=== PATIENT | male | born 1935 | race Caucasian/White ===

== ENCOUNTER → 2024-02-25 10:26 | Outpatient (REF) | payer OTHER, SELFPAY | LOC: HWRAD 10:26 | PROVIDERS: ATTENDING PHYSICIAN Family Medicine | DX: I71.9 Aortic aneurysm of unspecified site, without rupture (principal) | CPT/HCPCS: 76770 ==

== ENCOUNTER → 2024-04-13 13:03 | Outpatient (REF) | payer OTHER, SELFPAY | LOC: HWRAD 13:03 | PROVIDERS: ATTENDING PHYSICIAN Family Medicine | DX: J44.9 Chronic obstructive pulmonary disease, unspecified (principal); R07.81 Pleurodynia; M54.9 Dorsalgia, unspecified; E66.01 Morbid (severe) obesity due to excess calories; E78.2 Mixed hyperlipidemia | CPT/HCPCS: 71111; 72072 ==

== ENCOUNTER → 2024-04-21 12:51 | Outpatient (REF) | payer OTHER, SELFPAY | LOC: EMG 12:51 | PROVIDERS: ATTENDING PHYSICIAN Orthopaedic Surgery; FAMILY PHYSICIAN Family Medicine | DX: R20.0 Anesthesia of skin (principal); G56.01 Carpal tunnel syndrome, right upper limb | CPT/HCPCS: 95886; 95909 ==

== ENCOUNTER → 2024-08-25 11:13 | Outpatient (REF) | payer OTHER, SELFPAY | LOC: RAD 11:13 | PROVIDERS: ATTENDING PHYSICIAN Surgery Vascular Surgery; FAMILY PHYSICIAN Family Medicine | DX: I71.40 Abdominal aortic aneurysm, without rupture, unspecified (principal) | CPT/HCPCS: 74176 ==

== ENCOUNTER → 2024-09-14 12:50 | Outpatient (REF) | payer OTHER, SELFPAY | LOC: RAD 12:50 | PROVIDERS: ATTENDING PHYSICIAN Surgery Vascular Surgery; FAMILY PHYSICIAN Family Medicine | DX: I71.40 Abdominal aortic aneurysm, without rupture, unspecified (principal) | CPT/HCPCS: 76770 ==

== ENCOUNTER → 2024-10-16 09:49 | Outpatient (REF) | payer OTHER, SELFPAY | LOC: RAD 09:49 | PROVIDERS: ATTENDING PHYSICIAN Student in an Organized Health Care Education/Training Program | DX: R05.1 Acute cough (principal) | CPT/HCPCS: 71046 ==

== ENCOUNTER → 2024-12-12 08:11 | Outpatient (REF) | payer OTHER, SELFPAY | LOC: PAVMRI 08:11 | PROVIDERS: ATTENDING PHYSICIAN Physician Assistant; FAMILY PHYSICIAN Family Medicine | DX: M54.16 Radiculopathy, lumbar region (principal) | CPT/HCPCS: 72148 ==

== ENCOUNTER 2025-01-31 07:03 | Inpatient (IN) | payer OTHER, SELFPAY ==
[2025-01-05 13:48] VITALS: BMI 33.0
[2025-01-05 13:54] LABS: Hematocrit 42.3 % (39.0-52.0); Hemoglobin 14.1 g/dL (13.0-18.0); Mean Corp Hgb Conc. 33.3 g/dL (33.0-37.0); Mean Corpuscular Hgb 32.1 pg (27.0-31.0); Mean Corpuscular Volume 96.4 fL (80.0-94.0); Mean Platelet Volume 9.5 fL (7.4-10.4); Platelet Count 266 10^3/uL (130-400); Red Blood Cell Count 4.39 10^6/uL (4.70-6.10); Red Cell Dist. Width 12.8 % (11.5-14.5); White Blood Cell Count 7.3 10^3/uL (4.8-10.8)
[2025-01-05 14:02] LABS: ALT (SGPT) 18 U/L (0-50); AST (SGOT) 19 U/L (17-59); Alkaline Phosphatase 111 U/L (38-126); Blood Urea Nitrogen 23 mg/dl (9-20); Calcium 9.1 mg/dl (8.4-10.2); Carbon Dioxide 32 mmol/L (22-30); Chloride 103 mmol/L (98-107); Estimated Creatinine Clearance 68 ml/min; Glucose 105 mg/dl (70-99); Potassium 4.7 mmol/L (3.5-5.1); Sodium 141 mmol/L (135-145); Total Bilirubin 1.6 mg/dl (0.2-1.3); eGFR > 60.00
--- NOTE | 2025-01-05 14:11 | CM ---
Patient evaluated by ortho PA. CM updated that patient will need home PT/OT and home RN.
[2025-01-05 15:12] VITALS: BMI 33.0
[2025-01-06 09:02] LABS: Glycohemoglobin (HgbA1c) 6.2 % (4.0-5.6)
--- NOTE | 2025-01-10 11:45 | CM ---
CM reviewed medical records. CM spoke with patient via his cell phone. Patient confirmed demographics. Patient reports a history of VN with [facility] for previous surgeries. Patient has has a history of SNF at [facility] and he stated he 'hated it'
and would prefer not to go to SNF. Patient confirmed that he has a rolling walker, single pointe cane, raised toilet seat and he did secure a hip kit. Patient is active with his PCP> Patient uses [facility] for medication services.
Patient stated that his , children and grandchildren will be available for support post -operatively.
CM provided patient with CM contact information and encourage questions pre-operatively.
Patient has confirmed that he would prefer [facility]. CM sent referral via [facility].
PLAN: home with [facility], PT/OT.
--- NOTE | 2025-01-26 09:46 | PTCARENOTE ---
This RN verified that Celine Butler is aware that patient is currently being treated for sinusitis as documented in PCP clearance note of 01/19/25.
[2025-01-31] VITALS (20 sets, daily range): BP systolic 72–161; BP diastolic 41–78; PULSE 81; O2SAT 95
[2025-01-31] MEDS: NORMOSOL-R/PLASMALYTE-A 1000 IV ×2 (07:27→13:14)
[2025-01-31] MEDS: CELEBREX 200 MG PO (07:27)
[2025-01-31] MEDS: BACTROBAN NASAL 1 GRAM NASAL (07:27)
[2025-01-31] MEDS: TYLENOL 650 MG PO ×4 (07:27→19:49)
[2025-01-31] MEDS: DILAUDID 0.5 MG IV ×2 (10:50→11:08)
[2025-01-31] MEDS: ROXICODONE 5 MG PO ×2 (11:37→15:54)
--- NOTE | 2025-01-31 11:51 | W.PN.UPDATE ---
Update Note
Progress Note Update
L FEMI 01/31/25
DVT ppx-ASA
Pain control-patient refused any Rx pain medication for home
BPH/urinary retention-Flomax provided to begin snk-ah-vplejty void
Recent respiratory eozwgkcyk-ko-knkvlypk patient-01/28/25-symptoms resolved-s/p abx course-lungs CTA--given hx COPD with recent infection-Cefadroxil ppx OP for infection prevention-incentive spirometry
Hx SBO/IBS-bowel regimen stressed with MOM +
DDD/spinal stenosis-chronic LLE paresthesia, ? R foot drop-monitor wftv-ze-djmr precautions
PMH:
1. Osteoarthritis.
2. BPH.
3. AAA 3.[address] 07/2024.
4. COPD.
5. History of tobacco abuse.
6. Obstructive sleep apnea.
7. Borderline diabetes.
8. DDD/spinal stenosis-lumbar radiculopathy, LLE paresthesia.
9. Right hand radiculopathy secondary to carpal tunnel.
10. Hyperlipidemia.
11. Small bowel obstruction 2011.
12. Irritable bowel.
[2025-01-31] MEDS: FLOMAX 0.4 MG PO (11:57)
[2025-01-31] MEDS: DECADRON 4 MG IV ×2 (12:04→19:50)
[2025-01-31] MEDS: ANCEF 5 IV (15:41)
[2025-01-31] MEDS: ASPIRIN 325 MG PO (17:05)
[2025-01-31] MEDS: TORADOL 15 MG IV (19:49)
[2025-01-31] MEDS: SENOKOT 17.2 MG PO (19:49)
[2025-01-31] MEDS: COLACE 100 MG PO (19:49)
[2025-01-31] MEDS: NEURONTIN 300 MG PO (21:29)
[2025-01-31] MEDS: BENADRYL 25 MG PO (21:29)
[2025-01-31] MEDS: PEPCID 20 MG PO (21:29)
[2025-01-31] MEDS: BACTROBAN 2% OINTMENT 1 APPLIC NASAL (22:25)
[2025-02-01] MEDS: TYLENOL 650 MG PO ×4 (00:17→11:41)
[2025-02-01] MEDS: ANCEF 5 IV (00:17)
[2025-02-01 03:25] VITALS: BP 130/63
[2025-02-01 07:18] VITALS: BP 114/67
[2025-02-01] MEDS: FLORASTOR 250 MG PO (07:46)
[2025-02-01] MEDS: ASPIRIN 325 MG PO (07:46)
[2025-02-01] MEDS: SENOKOT 17.2 MG PO (07:46)
[2025-02-01] MEDS: COLACE 100 MG PO (07:46)
[2025-02-01] MEDS: CELEBREX 200 MG PO (07:46)
[2025-02-01] MEDS: FLOMAX 0.4 MG PO (07:46)
[2025-02-01] MEDS: BACTROBAN 2% OINTMENT 1 APPLIC NASAL (07:47)
[2025-02-01] MEDS: DECADRON 4 MG IV (07:48)
[2025-02-01] MEDS: TORADOL 15 MG IV (07:48)
--- NOTE | 2025-02-01 08:43 | W.PN.ORTHO ---
Today's Communication / Plan
-
d/c
Assessment
.
Distal Motor Intact: Yes
Dressing:
Clean, dry and intact.
Assessment:
BPH/urinary retention-Flomax provided to begin pqs-fr-owzcqon well
Recent respiratory kflhbfenq-cu-nmkuhxmh patient-01/28/25-symptoms resolved-s/p abx course-lungs CTA--given hx COPD with recent infection-Cefadroxil ppx OP for infection prevention-incentive spirometry-O2 sats stable
JAMIR-dx remotely but intolerant to device-requests pulmonology referral-requested sleep consult
Hx SBO/IBS-bowel regimen stressed with MOM +
DDD/spinal stenosis-chronic LLE paresthesia, ? R foot drop-monitor zzat-mk-cbql precautions
Plan
.
Surgery / Date: L FEMI 01/31/25
DVT Prophylaxis: Aspirin
Activity:
Out of bed.
PT/OT
Discharge Plan: Home w/ VN
Subjective
.
.:
Patient resting comfortably.
Vital Signs and Labs
.
Vital Signs and Labs:
Lab Results
01/05/25 12:09
01/05/25 12:09
Temp Pulse Resp BP Pulse Ox
97.6 F 80 17 114/67 95
02/01/25 07:18 02/01/25 07:18 02/01/25 07:18 02/01/25 07:18 02/01/25 07:18
Non-invasive Hgb result: 11.6
Physical Exam
-
HEENT: No pallor, cyanosis, or jaundice. Throat clear.
NECK: Supple. No JVD.
RESPIRATORY: Lungs clear to auscultation.
CVS: S1, S2 normal. RRR.� No murmur, rub or gallop.
ABDOMEN: Soft, non-tender. No distension. BS+/normal.
EXTREMITIES: strength equal, no calf pain with palpation
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 No focal deficits. 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
--- NOTE | 2025-02-01 09:13 | CM ---
CM met with patient in room. Plan for home with [facility]. ALENA updated [facility] medical program specialist.
PLAN: home with [facility].
[2025-02-01 09:58] VITALS: BP 135/72; PULSE 80; O2SAT 95
[2025-02-01 10:03] VITALS: BP 107/54; BP 110/48; PULSE 79; O2SAT 94
[2025-02-01 11:12] VITALS: BP 114/61
--- NOTE | 2025-02-01 11:21 | VNURNOTE ---
VN liaison attempted to meet with patient, he was out of the room. Will follow up later.
--- NOTE | 2025-02-01 12:55 | W.DS.TRANS ---
DC Summary - [employer]
-
Discharge Instructions:
Discharge Diagnosis/Procedures L FEMI 01/31/25
Diet As tolerated
Activity With Walker,With assistance
Additional Activity Adequate hydration, minimize Oxy and wear TEDs
stockings to prevent low blood pressure/
dizziness
Driving Restrictions No driving
Bathing Restrictions OK to Shower
Other Services PT,VN,OT
Instructions:
Stand-Alone Forms: Total Hip/Knee Replacement D/C
Changes to Home Medications: Yes
Discharge Medications:
DC Medications w/original date entered in [employer]
diphenhydramine HCl 25 mg capsule (Benadryl) 25 mg PO DAILY Allergies 01/04/25
mupirocin 2 % topical ointment 1 applic topical BID infection prevention #1 tube 01/05/25
tamsulosin 0.4 mg capsule 0.4 mg PO HS #7 caps 01/05/25
cefadroxil 500 mg capsule 500 mg PO BID infection prevention #14 caps 01/27/25
Saccharomyces boulardii 250 mg capsule (Florastor) 250 mg PO BID #1 cap 01/31/25
acetaminophen 500 mg tablet (Tylenol Extra Strength) 1,000 mg (2 x 500 mg) PO QID #0 tabs 01/31/25
aspirin 325 mg tablet 325 mg PO DAILY blood clot prevention #1 tab 01/31/25
sennosides 8.6 mg tablet (Senokot) 17.2 mg (2 x 8.6 mg) PO BID laxative #2 tabs 01/31/25
celecoxib 200 mg capsule 200 mg PO DAILY Anti-inflammatory #14 caps 02/01/25
dexamethasone 4 mg tablet 4 mg PO BID inflammation #6 tabs 02/01/25
docusate sodium 100 mg capsule (Colace) 100 mg PO BID stool softner #1 cap 02/01/25
famotidine 20 mg tablet 20 mg PO HS GI prophylaxis #30 tabs 02/01/25
magnesium hydroxide 400 mg/5 mL oral suspension (Milk of Magnesia) 30 ml PO HS PRN constipation #1 mL 02/01/25
ondansetron 4 mg disintegrating tablet 4 mg PO Q6H PRN n/v #20 tabs 02/01/25
oxycodone 5 mg tablet 5 mg PO Q6H PRN moderate-severe pain #20 tabs 02/01/25
Home Medication Changes
mupirocin 2 % topical ointment 1 applic topical BID infection prevention #1 tube 01/05/25
tamsulosin 0.4 mg capsule 0.4 mg PO HS #7 caps 01/05/25
cefadroxil 500 mg capsule 500 mg PO BID infection prevention #14 caps 01/27/25
Saccharomyces boulardii 250 mg capsule (Florastor) 250 mg PO BID #1 cap 01/31/25
acetaminophen 500 mg tablet (Tylenol Extra Strength) 1,000 mg (2 x 500 mg) PO QID #0 tabs 01/31/25
aspirin 325 mg tablet 325 mg PO DAILY blood clot prevention #1 tab 01/31/25
sennosides 8.6 mg tablet (Senokot) 17.2 mg (2 x 8.6 mg) PO BID laxative #2 tabs 01/31/25
celecoxib 200 mg capsule 200 mg PO DAILY Anti-inflammatory #14 caps 02/01/25
dexamethasone 4 mg tablet 4 mg PO BID inflammation #6 tabs 02/01/25
docusate sodium 100 mg capsule (Colace) 100 mg PO BID stool softner #1 cap 02/01/25
famotidine 20 mg tablet 20 mg PO HS GI prophylaxis #30 tabs 02/01/25
magnesium hydroxide 400 mg/5 mL oral suspension (Milk of Magnesia) 30 ml PO HS PRN constipation #1 mL 02/01/25
ondansetron 4 mg disintegrating tablet 4 mg PO Q6H PRN n/v #20 tabs 02/01/25
oxycodone 5 mg tablet 5 mg PO Q6H PRN moderate-severe pain #20 tabs 02/01/25
Pending Results: No
--- NOTE | 2025-02-01 12:56 | SLEEP.APNEA ---
Sleep Apnea Order
-
Patient screened as High Risk for Sleep Apnea on Stop Bang Questionnaire. Patient referred to [facility] for Pre-Study.

Name: YARA PARHAM
: 1935
Home Phone: Use [email or web address] instead
Cell Phone: [f_Reg Other Phone]
Work Phone:
Address: [address] [place] [address]
City: [place]
State: [place]
Zip: [f_[facility] Zip]
Family Physician: Bryan Arnett
Height 5 ft 9 in
Actual Weight 101.3 kg
Body Mass Index (BMI) 33.0
Ordering Provider: Juanita Butler
--- NOTE | 2025-02-01 13:32 | VNURNOTE ---
Home Health Liaison spoke with patient to discuss [facility] nurse/therapy, visits, schedule and homebound status. Patient is agreeable and understands that visits at home will be 2-3 x per week to assess and teach medical management. Patient is aware
that [facility] will contact them for start of care in 1-2 days after discharge from .
[facility] referral accepted in [facility].
[2025-02-01 14:00] VITALS: BP 130/64
== END 2025-02-01 14:52 | disposition home health service (06) | DRG 470 ==
LOC: 2 SOUTH 07:03
PROVIDERS: ADMITTING PHYSICIAN Specialist; FAMILY PHYSICIAN Family Medicine
PROC: 0SRB04A Replacement of Left Hip Joint with Ceramic on Polyethylene Synthetic Substitute, Uncemented, Open Approach (ICD-10-PCS; 2025-01-31)
DX: M16.12 Unilateral primary osteoarthritis, left hip (principal); Z87.891 Personal history of nicotine dependence; E66.9 Obesity, unspecified; Z68.33 Body mass index [BMI] 33.0-33.9, adult
CPT/HCPCS: 36415; 73502; 80053; 83036; 85027; 87070; 93005; 97110; 97116; 97163; 97167; 97530; 97535; C1713; C1776

== ENCOUNTER 2025-03-23 09:22 | Outpatient (RCR) | payer OTHER, SELFPAY | END 2025-03-23 23:59 | disposition home or self-care (01) | LOC: RPT 09:22 | PROVIDERS: ATTENDING PHYSICIAN Specialist; FAMILY PHYSICIAN Family Medicine | DX: Z47.1 Aftercare following joint replacement surgery (principal); Z96.642 Presence of left artificial hip joint | CPT/HCPCS: 97010; 97110; 97112; 97140; 97162 ==

== ENCOUNTER 2025-04-07 13:29 | Outpatient (RCR) | payer OTHER, SELFPAY | END 2025-04-07 23:59 | disposition home or self-care (01) | LOC: RPT 13:29 | PROVIDERS: ATTENDING PHYSICIAN Specialist; FAMILY PHYSICIAN Family Medicine | DX: Z47.1 Aftercare following joint replacement surgery (principal); Z96.642 Presence of left artificial hip joint | CPT/HCPCS: 97110; 97140 ==

== ENCOUNTER → 2025-09-19 09:29 | Outpatient (REF) | payer OTHER, SELFPAY | LOC: HWRAD 09:29 | PROVIDERS: ATTENDING PHYSICIAN Physician Assistant; FAMILY PHYSICIAN Family Medicine | DX: I71.40 Abdominal aortic aneurysm, without rupture, unspecified (principal) | CPT/HCPCS: 74176 ==